=== PATIENT | female | born 1960 | race African-American/Black ===

== ENCOUNTER → 2018-05-20 | Outpatient (CLI) | payer OTHER | END | disposition home or self-care (01) | LOC: CFH 13:45 | PROVIDERS: ATTEND Internal Medicine Cardiovascular Disease | DX: I11.9 Hypertensive heart disease without heart failure (principal); R00.0 Tachycardia, unspecified; E11.9 Type 2 diabetes mellitus without complications; E78.5 Hyperlipidemia, unspecified | CPT/HCPCS: 93306 ==

== ENCOUNTER → 2019-02-04 | Outpatient (CLI) | payer OTHER ==
[~2019-02-04] MED LIST: ATOR40TA78 PO; CHOLESTEROL MED; DULA0.75 IM; DULA1.5P INJ; EMPA25TA PO; IBUP-1222 PO; LINA1TAB9 PO; LISI-167 PO; METO-99 PO; OMEP-110 PO; [UNRECOGNIZED DRUG - OTHER]
== END | disposition home or self-care (01) ==
LOC: CFH 12:17
PROVIDERS: ATTEND Internal Medicine Cardiovascular Disease
DX: R07.89 Other chest pain (principal); I10 Essential (primary) hypertension
CPT/HCPCS: 75571

== ENCOUNTER 2019-11-19 18:54 | Emergency (ER) | payer OTHER ==
[~2019-11-19] VITALS: Ht 162.6 cm; Wt 102.5 kg
--- NOTE | 2019-11-19 19:25 | NUR ---
THIS IS A 59 YO FEMALE COMING IN FOR RIGHT SIDED FACIAL/UE/LE NUMBNESS AND TINGLING X5 DAYS. FACIAL AND LEG NUMBNESS HAS SINCE RESIDED, RIGHT ARM SENSATION SLIGHTLY DIMINISHED IN COMPARISON TO LEFT. PATIENT HAS HX GRAVES DISEASE AND HAS HAD ELEVATED BP NIGHTLY. PATIENT STATES "ABOUT 3 WEEKS AGO MY SHOULDER STARTED HURTING WELL". EQUAL STRENGTH BILATERALLY IN ALL EXTREMITIES, DIMINISHED SENSATION IN RIGHT ARM. A&OX4, DENIES ANY NEW WEAKNESS OR CONFUSION. CLEAR SPEECH. ALL MONITORING IN PLACE, SINUS TACHYCARDIA ON MONITOR AT 106. VSS, NADN AT THIS TIME, CALL LIGHT IN REACH
--- NOTE | 2019-11-19 19:55 | NUR ---
PATIENT AMBULATORY WITH STEADY GAIT TO RESTROOM FOR UA
[2019-11-19] MEDS ORDERED: SODIUM CHLORIDE FLUSH 10ML SYR IVF ONE (20:00)
--- NOTE | 2019-11-19 20:05 | NUR ---
UA COLLECTED AND SENT
[2019-11-19 20:15] LABS: MICROSCOPIC NOT IND
[2019-11-19 20:18] LABS: ALANINE AMINOTRANSFERASE 30 U/L (12-78); ALBUMIN 3.5 g/dL (3.4-5.0); ANION GAP 7 mmol/L (5-15); CALCIUM 9.4 mg/dL (8.5-10.1); CHLORIDE 109 mmol/L (98-107); CREATININE 0.92 mg/dL (0.55-1.02)
[2019-11-19 20:27] LABS: BASOPHILS # (AUTO) 0.03 x10^3/uL (0-0.1); BASOPHILS % (AUTO) 0 % (0-1); EOSINOPHILS # (AUTO) 0.21 x10^3/uL (0-0.4); EOSINOPHILS % (AUTO) 2 % (1-7); LYMPHOCYTES # (AUTO) 3.55 x10^3/uL (1-3.4); LYMPHOCYTES % (AUTO) 34 % (22-44); MD NO; MEAN CORPUSCULAR HEMOGLOBIN 31.7 pg (27.0-34.8); MEAN CORPUSCULAR HGB CONC 32.7 g/dL (32.4-35.8); MEAN CORPUSCULAR VOLUME 97.1 fL (80-100); MEAN PLATELET VOLUME 7.7 fL (7.4-10.4); MONOCYTES # (AUTO) 0.62 x10^3/uL (0.2-0.8); MONOCYTES % (AUTO) 6 % (2-9); NEUTROPHILS # (AUTO) 6.16 x10^3/uL (1.8-6.8); NEUTROPHILS % (AUTO) 58 % (42-75); PLATELET COUNT 300 x10^3/uL (130-400); RED BLOOD COUNT 4.38 x10^6/uL (3.82-5.3); RED CELL DISTRIBUTION WIDTH 14.2 % (9.6-15.2)
[2019-11-19 20:28] LABS: ALKALINE PHOSPHATASE 71 U/L (45-117); BILIRUBIN,TOTAL 0.3 mg/dL (0.2-1.0); TOTAL PROTEIN 7.5 g/dL (6.4-8.2)
--- NOTE | 2019-11-19 20:51 | NUR ---
CHART UP FOR MD RECHECK. PT AWARE.
[2019-11-19 20:54] VITALS: BP 119/75
[2019-11-19] MEDS ORDERED: METOPROLOL TARTRATE 25 MG TAB ONE (21:29)
[2019-11-19] MEDS ORDERED: METOPROLOL TARTRATE 25 MG TAB PO ONE (21:30)
== END 2019-11-19 21:52 | disposition home or self-care (01) ==
LOC: ED 21:43
DX: R00.0 Tachycardia, unspecified (principal); E11.40 Type 2 diabetes mellitus with diabetic neuropathy, unspecified; R51 Headache; R06.9 Unspecified abnormalities of breathing; R20.2 Paresthesia of skin; I10 Essential (primary) hypertension; R53.83 Other fatigue
CPT/HCPCS: 36415; 70450; 71045; 80053; 81003; 84439; 84443; 85025; 93005; 99285